=== PATIENT | male | born 1980 | race Caucasian/White ===

== ENCOUNTER 2022-02-03 00:41 | Emergency (ER) | payer SELFPAY ==
[2022-02-03 02:17] LABS: #Eosinphils 0.2 10x3/uL (0.0-0.5); #Monocytes 0.4 10x3/uL (0.0-1.1); #Neutrophils 2.5 10x3/uL (1.5-8.4); %Basophils 0.4 % (0.0-2.0); %Eosinophils 2.7 % (0.0-6.0); %Lymphocytes 44.4 % (18.0-47.0); %Monocytes 6.9 % (0.0-10.0); %Neutrophils 45.2 % (40.0-75.0); Hemoglobin 13.7 g/dL (13.5-17.5); Mean Corpuscular HGB CONC 34.7 g/dL (32.0-36.0); Mean Corpuscular Hemoglobin 31.1 pg (27.0-33.0); Mean Corpuscular Volume 89.6 fl (81.2-95.1); Mean Platelet Volume 9.2 fl (7.4-10.4); Platelet Count 276 10x3/uL (150-450); RBC Distribution Width 13.6 % (11.5-14.5); Red Blood Cell (RBC) Count 4.41 10x6/uL (4.32-5.72); White Blood Cell (WBC) Count 5.5 10x3/uL (3.5-10.5)
[2022-02-03 02:23] LABS: ALT (SGPT) 16 U/L (8-55); AST (SGOT) 21 U/L (5-34); Albumin 3.7 g/dL (3.5-5.0); Alkaline Phosphatase 42 U/L (40-110); Anion Gap 14 mmol/L (10-20); BUN (Urea Nitrogen) 9 mg/dL (8.9-20.6); Bilirubin, Total 0.2 mg/dL (0.2-1.2); Calc. Creatinine Clearance 0 mL/min (70-130); Calcium 7.6 mg/dL (7.8-10.44); Carbon Dioxide 18 mmol/L (22-29); Chloride 114 mmol/L (98-107); Estimated GFR 117; Globulin 2.1 g/dL (2.4-3.5); Glucose 90 mg/dL (70-105); Magnesium 1.8 mg/dL (1.6-2.6); Potassium 3.6 mmol/L (3.5-5.1); Protein, Total 5.8 g/dL (6.0-8.3); Sodium 142 mmol/L (136-145)
== END 2022-02-03 03:28 | disposition home or self-care (01) ==
LOC: CSHERS 00:41
DX: R55 Syncope and collapse (principal); I25.2 Old myocardial infarction; I48.91 Unspecified atrial fibrillation; F17.210 Nicotine dependence, cigarettes, uncomplicated
CPT/HCPCS: 80053; 83735; 84484; 85025; 93005

== ENCOUNTER 2025-02-18 14:40 | Outpatient (CLI) | payer OTHER | END 2025-02-18 14:41 | disposition home or self-care (01) | LOC: CSHRAD 14:40 | PROVIDERS: ATTEND Physician Assistant | DX: M25.521 Pain in right elbow (principal); R07.89 Other chest pain; M25.511 Pain in right shoulder ==